=== PATIENT | female | born 1935 | race African-American/Black ===

== ENCOUNTER 2017-04-20 07:35 | Day surgery (SDC) | payer OTHER ==
[~2017-04-20] VITALS: Ht 165.1 cm; Wt 67.2 kg
[~2017-04-20 07:35] MED LIST: ASA5GR PO; ASAB PO; BESIVANCE OPH; BRIMONIDINE0.2 % OPH; BUSPAR5 PO; CARDU2 PO; CLORTIMAZOLE EX; COREG12 PO; COREG25 PO; DIABETA5 PO; DIOVAN HC2 PO; DIOVAN320 MG PO; DOX10 PO; GLUCOTROL5 PO; ILEVRO1.7 ML OPH; L80 PO; LIPITOR40 PO; METHOC750B PO; NORCO1 TA1 PO; PLAVIX PO; PROTONIX PO; SEVE800T PO; TAZTIA X3 PO; TIMOLOL MAL0.5 % OPH; TIMOPTIC OCU0.5 % OP; TRIPHROCAPS PO; ZOFRAN ODT4 MG PO; ZOL50 PO
[2017-04-20 08:11] LABS: HEMOGLOBIN 10.7 g/dL (12.0-16.0)
[2017-04-20 08:13] LABS: HEMATOCRIT 33.2 % (36.0-48.0)
[2017-04-20 08:24] LABS: CALCIUM, SERUM 9.5 MG/DL (8.5-10.4); CHLORIDE, SERUM 102 MMOL/L (96-112); CO2 (CARBON DIOXIDE) 32 MMOL/L (24-34); CREATININE 6.41 MG/DL (0.55-1.02); GFR AFRICAN AMERICAN 7 ML/MIN (>=60); GFR NON AFRICAN AMERICAN 6 ML/MIN (>=60); GLUCOSE, SERUM 101 MG/DL (60-99); POTASSIUM, SERUM 4.1 MMOL/L (3.5-5.3); SODIUM, SERUM 140 MMOL/L (135-148)
[2017-04-20 08:25] LABS: BUN (BLOOD UREA NITROGEN) 28 MG/DL (6-23)
== END 2017-04-20 12:59 | disposition home or self-care (01) ==
LOC: SDC 07:35
PROVIDERS: Ophthalmology
PROC: 08RJ3JZ Replacement of Right Lens with Synthetic Substitute, Percutaneous Approach (ICD-10-PCS; principal; 2017-04-20 09:15)
DX: H25.11 Age-related nuclear cataract, right eye (principal); E11.36 Type 2 diabetes mellitus with diabetic cataract; I12.0 Hypertensive chronic kidney disease with stage 5 chronic kidney disease or end stage renal disease; E11.22 Type 2 diabetes mellitus with diabetic chronic kidney disease; N18.6 End stage renal disease; E78.5 Hyperlipidemia, unspecified; M19.90 Unspecified osteoarthritis, unspecified site; E89.0 Postprocedural hypothyroidism; K21.9 Gastro-esophageal reflux disease without esophagitis; Z86.73 Personal history of transient ischemic attack (TIA), and cerebral infarction without residual deficits; Z88.0 Allergy status to penicillin; Z88.2 Allergy status to sulfonamides; Z88.5 Allergy status to narcotic agent; Z88.6 Allergy status to analgesic agent; Z79.82 Long term (current) use of aspirin; Z79.899 Other long term (current) drug therapy; Z91.040 Latex allergy status; Z98.51 Tubal ligation status; Z98.42 Cataract extraction status, left eye; Z96.1 Presence of intraocular lens; Z95.2 Presence of prosthetic heart valve; Z98.890 Other specified postprocedural states
CPT/HCPCS: 80048; 82962; 85014; 85018; 93005; J0360; J2150; J2405; J3370